=== PATIENT | male | born 1980 | race Caucasian/White ===

== ENCOUNTER 2017-06-20 21:37 | Emergency (ER) | payer OTHER ==
[~2017-06-20] VITALS: Ht 182.9 cm; Wt 83.0 kg
[2017-06-20] MEDS ORDERED: TURM1POW PO (22:00)
[2017-06-20] MEDS ORDERED: [UNRECOGNIZED DRUG - CODE] PO (22:00)
[2017-06-20 23:23] VITALS: BP 100/58
== END 2017-06-20 23:25 | disposition home or self-care (01) ==
LOC: ED 23:05
DX: R07.89 Other chest pain (principal)
CPT/HCPCS: 71045; 93005; 99284